=== PATIENT | female | born 1950 | race Caucasian/White ===

== ENCOUNTER → 2023-09-13 09:09 | Outpatient (CLI) | payer OTHER, SELFPAY ==
--- NOTE | 2023-09-13 09:12 | DI.ECHO.S_ITS ---
[facility] : : [address] : : [place] : : [id number] : : Phone: [phone] Echocardiogram Report + + :Name: BOBBY MOREAU Study Date: 09/13/2023 Height: 64 in : :[facility] ReadingLocation: Weight: 130 lb : : Gender: Female BSA: 1.6 m2 : :: 1950 Age: 72 yrs BP: 145/83 mmHg: :Reason For Study: MURMUR : :Ordering Physician: FRANC MICHAEL Performed By: John Sheikh : :Referring: FRANC MICHAEL : + + Interpretation Summary 1. LV contractility is normal. EF of > 60% without WMA. No LVH. Normal diastolic function. 2. RV contractility is normal. 3. Borderline LAE. All other chambers are normal sized. 4. No significant vavlular abnormalities. 5. No obvious intracardiac shunts. 6. No obvious intracardiac masses/thrombi. 7. No hemodynamically significant pericardial effusion. Conclusion: Normal biventricular function without significant valvular abnormalities. Procedure: A two-dimensional transthoracic echocardiogram with color flow and Doppler was performed. The study quality was technically adequate. The patient was in normal sinus rhythm during the exam. The heart rate ranged between 61-69 bpm during the study. Left Ventricle: The left ventricle is normal in size and wall thickness. The ejection fraction is estimated to be 60-65%. Right Ventricle: The right ventricle is normal size. The right ventricular systolic function is normal. Atria: The left atrium is mildly dilated. Right atrial size is normal. The interatrial septum grossly appears intact with no obvious evidence for an atrial septal defect. Mitral Valve: The mitral valve is normal. There is no mitral valve stenosis. There is trace mitral regurgitation. Aortic Valve: The aortic valve is trileaflet. There is no aortic valve stenosis. There is trace aortic regurgitation. Tricuspid Valve: The tricuspid valve is normal. There is no tricuspid stenosis. There is trace tricuspid regurgitation. The right ventricular systolic pressure is estimated to be at least 22.6 mmHg based on an estimated right atrial pressure of 3 mm Hg. Pulmonic Valve: The pulmonic valve is not well visualized. There is no pulmonic valvular stenosis. There is a trace or physiologic amount of pulmonic regurgitation. Great Vessels: The aortic root is normal size. The dimensions of the ascending aorta are normal. The IVC is of normal diameter and collapses greater than 50% with a sniff. This suggests a low right atrial pressure of 3 mm Hg. Pericardium/ Pleura There is no pericardial effusion. There is no pleural effusion. MMode/2D Measurements & Calculations LVIDd: 3.9 cm LVOT diam: 1.8 cm LVIDs: 2.4 cm Ao root diam: 2.8 cm FS: 38.4 % asc Aorta Diam: 3.4 cm IVSd: 0.81 cm Ao Arch Diam (Prox Trans): 2.4 cm LVPWd: 0.77 cm LV martines. diameter/BSA (cm/m^2): 2.4 LV sys. diameter/BSA (cm/m^2): 1.5 LA A2 area: 22.3 cm2 RA long axis: 4.7 cm LA A4 area: 16.8 cm2 RA area: 14.5 cm2 LA length (vol): 5.4 cm RA vol: 37.6 ml LA vol: 59.2 ml RA : 23.1 ml/m2 LA vol index: 36.4 ml/m2 IVC diam: 1.4 cm RVD1 (basal): 3.6 cm RVD2 (mid): 3.0 cm TAPSE: 2.6 cm Doppler Measurements & Calculations Ao V2 max: 127.7 cm/sec LVOT Max Tj: 99.1 cm/sec Ao V2 mean: 94.9 cm/sec LV V1 max P.9 mmHg Ao max P.5 mmHg LV V1 VTI: 26.2 cm Ao mean P.9 mmHg RICCO(I,D): 2.0 cm2 Ao V2 VTI: 32.1 cm RICCO(V,D): 1.9 cm2 sev ratio: 0.82 RICCO indexed to BSA (cm^2/m^2): 1.2 MV E max tj: 68.7 cm/sec TR max tj: 221.2 cm/sec MV A max tj: 57.1 cm/sec TR max P.6 mmHg MV E/A: 1.2 PA V2 max: 91.4 cm/sec Med Peak E' Tj: 9.5 cm/sec PA V2 mean: 61.5 cm/sec E/E' med: 7.3 PA mean P.7 mmHg Lat Peak E' Tj: 9.8 cm/sec PA pr(Accel): 12.2 mmHg E/E' lat: 7.0 E/e' average: 7.1 MV dec time: 0.20 sec SV(LVOT): 63.2 ml Reading Physician:
== END ==
LOC: ECHO 09:11
PROVIDERS: PCP Family Medicine; Referring Provider Internal Medicine; Visit Provider Internal Medicine
DX: R01.1 Cardiac murmur, unspecified (principal)
CPT/HCPCS: 93306